=== PATIENT | male | born 1960 | race Caucasian/White ===

== ENCOUNTER 2016-08-22 16:59 | Emergency (ER) | payer OTHER ==
[2016-08-22 17:07] VITALS: BP 140/95; PULSE 74; RESP 16; TEMP 98.1; O2SAT 98
--- NOTE | 2016-08-22 17:36 | UCPHY ---
H & P Patient Type: Established Chief Complaint Nursing Narrative: l eye redness and drainage, started this am Time Seen by Provider: 08/22/16 17:26 HPI/ROS: CHIEF COMPLAINT: left eye redness, drainage HISTORY OF PRESENT ILLNESS: 56-year-old male presents complaining left eye redness with thick drainage that started this morning. Patient reports a mild nasal congestion. He reports his eye feels irritated mild itching. Patient denies foreign body sensation, no fevers, no blurred visions, no visual floaters or flashing lights. Patient does not wear contact lenses. REVIEW OF SYSTEMS: A comprehensive 10 point review of systems is otherwise negative aside from elements mentioned in the history of present illness. Source: Patient Exam Limitations: No limitations - Personal History Tetanus Vaccine Date: WITHIN 10 YRS - Medical/Surgical History Hx Asthma: No Hx Chronic Respiratory Disease: No Hx Diabetes: No Hx Cardiac Disease: No Hx Renal Disease: No Hx Cirrhosis: No Hx Alcoholism: No Hx HIV/AIDS: No Hx Splenectomy or Spleen Trauma: No Other PMH: denies - Family History Significant Family History: No pertinent family hx - Social History Smoking Status: Former smoker - Physical Exam Exam: Visual Acuity: Noted from Nurse's notes. Pupils: PERRLA, EOMI, no nystagmus, no trauma, no injection. Lids: No edema or swelling Skin: No proptosis, no periorbital erythema or swelling, no vesicles Conjunctivae: left eye injected, not icteric, purulent left eye discharge Cornea: Exam with slit lamp of left eye and fluoroscein shows no corneal abrasion Anterior chamber: Normal, no hyphema or hypopyon Constitutional: Initial Vital Signs Temperature (C) 36.7 C 08/22/16 17:05 Heart Rate 74 08/22/16 17:05 Respiratory Rate 16 08/22/16 17:05 Blood Pressure 140/95 H 08/22/16 17:05 O2 Sat (%) 98 08/22/16 17:05 O2 Delivery Mode Room Air Allergies/Adverse Reactions: No Known Allergies Allergy (Verified 05/20/16 07:27) Home Medications: Medication Instructions Recorded ASPIRIN 09/07/13 Sildenafil Citrate [Viagra] 100 mg PO HS #15 tablet 01/15/16 Erythromycin 0.5% 1 bhupinder OP QID #10 gm 08/22/16 Medical Decision Making ED Course/Re-evaluation: 56-year-old male presents with right eye and drainage that started this morning. He has no evidence of corneal abrasion, iritis, detached retina. Patient is given a prescription for erythromycin ointment, he is given the dry cleaning supervisor to follow up with and given return precautions. Departure - Departure Disposition: Home, Routine, Self-Care Clinical Impression: Conjunctivitis, left eye Qualifiers: Conjunctivitis type: acute Acute conjunctivitis type: bacterial Qualifier Code : (H10.32) Unspecified acute conjunctivitis, left eye Condition: Good Instructions: Conjunctivitis (ED) Additional Instructions: Cool compresses to your left eye. Use the antibiotic ointment in your eye every 4 hours for 7 days. Follow up with the dry cleaning supervisor in 2 days for symptoms that are not improving. Sooner for worsening symptoms. Referrals: Víctor Huffman MD [Medical Doctor] - As per Instructions (Optical Engineering Manager on-call ) Prescriptions: Erythromycin 0.5% 1 bhupinder OP QID #10 gm - PQRS PQRS Measurement: na
== END 2016-08-22 18:21 | disposition home or self-care (01) ==
LOC: CED 16:59
DX: H10.32 Unspecified acute conjunctivitis, left eye (principal)
CPT/HCPCS: 99214-PO; G0463-PO

== ENCOUNTER 2016-11-23 19:24 | Emergency (ER) | payer OTHER ==
--- NOTE | 2016-11-23 19:44 | EDPHY ---
H & P Stated Complaint: R sided inguinal pain HPI/ROS: HPI CHIEF COMPLAINT: Testicular pain HISTORY OF PRESENT ILLNESS: This patient very pleasant 56-year-old male no significant medical history except for epididymitis, he presents emergency room requesting antibiotic and pain medicine as he tells me that he thinks he has epididymitis again. He states approximately 12 hours ago developed right testicular pain along the cord of his testicle. He tells me feels exactly like his previous 2 episodes of epididymitis. He denies dysuria back pain or abdominal pain. Denies history of hernia. Denies fever. Past Medical History: Epididymitis Past Surgical History: Right shoulder surgery Social History: Occasional marijuana, denies drugs or alcohol Family History: Noncontributory ROS REVIEW OF SYSTEMS: A comprehensive 10 point review of systems is otherwise negative aside from elements mentioned in the history of present illness. Exam Constitutional triage nursing summary reviewed, vital signs reviewed, awake/ alert. Eyes normal conjunctivae and sclera, EOMI, PERRLA. HENT normal inspection, atraumatic, moist mucus membranes, no epistaxis, neck supple/ no meningismus, no raccoon eyes. Respiratory clear to auscultation bilaterally, normal breath sounds, no respiratory distress, no wheezing. Cardiovascular rate normal, regular rhythm, no murmur, no edema, distal pulses normal. Gastrointestinal soft, non-tender, no rebound, no guarding, normal bowel sounds, no distension, no pulsatile mass. Genitourinary exam: This is a circumcised male, normal scrotum, normal cremasteric reflex tender palpation down the right epididymal cord tender palpation lifting up the right testicle, no inguinal hernia palpated. Left cord and testicle normal. No cellulitis or abscess. No drainage. No lesions. Musculoskeletal no midline vertebral tenderness, full range of motion, no calf swelling, no tenderness of extremities, no meningismus, good pulses, neurovascularly intact. Skin pink, warm, & dry, no rash, skin atraumatic. Neurologic awake, alert and oriented x 3, AAOx3, moves all 4 extremities equally, motor intact, sensory intact, CN II-XII intact, normal cerebellar, normal vision, normal speech. Psychiatric normal mood/affect. Heme/Lymph/Immune no lymphadenopathy. Differential Diagnosis: Includes but is not limited to in a particular order epididymitis, testicular torsion, abscess, mass, bronchitis orchitis Medical Decision Making: I recommend this patient will perform an ultrasound of his testicles and cord to rule out testicular torsion versus abscess versus hernia however patient is refusing ultrasound also is refusing any blood draw or urinalysis. He tells me just wanted antibiotic and pain medicine. I explained that I cannot 100% rule that he has epididymitis and not testicular torsion and I highly recommend that he gets an ultrasound. He has declined this. Patient understands by declining ultrasound urinalysis and blood work that I cannot make 100% accurate diagnosis and he could have testicular torsion. Since he is refusing all evaluation here in emergency room I will be glad this start him on ciprofloxacin and [place] for pain control. Referred to Urology. However he understands if his pain gets worse or he changes mind about evaluation to return emergency room. By refusing testing there can be admits diagnosis. He understands that if he has testicular torsion this could result in severe morbidity, or even mortality and loss of testicle. Loss of quality of life. He understands Of note also this patient will sound out against medical advice as he is not allow for appropriate evaluation. Source: Patient - Personal History Current Tetanus/Diphtheria Vaccine: Yes Tetanus Vaccine Date: WITHIN 10 YRS - Medical/Surgical History Hx Asthma: No Hx Chronic Respiratory Disease: No Hx Diabetes: No Hx Cardiac Disease: No Hx Renal Disease: No Hx Cirrhosis: No Hx Alcoholism: No Hx HIV/AIDS: No Hx Splenectomy or Spleen Trauma: No Other PMH: denies - Social History Smoking Status: Former smoker Constitutional: Initial Vital Signs Temperature (C) 37.3 C 11/23/16 19:41 Heart Rate 102 H 11/23/16 19:41 Respiratory Rate 18 11/23/16 19:41 Blood Pressure 107/68 11/23/16 19:41 O2 Sat (%) 97 11/23/16 19:41 O2 Delivery Mode Room Air Allergies/Adverse Reactions: No Known Allergies Allergy (Verified 11/23/16 19:40) Home Medications: Medication Instructions Recorded Ciprofloxacin [Cipro] 500 mg PO BID #14 tab 11/23/16 Hydrocodone/APAP 5/325 [[place] 1 - 2 tab PO Q4H PRN #10 tab 11/23/16 5/325] Hydrocodone/Acetaminophen [[place] 1 - 2 tab PO Q4H PRN 11/23/16 5/325 (*)] Ibuprofen [Motrin (*)] 800 mg PO Q6-8PRN #7 tab 11/23/16 Departure - Departure Disposition: Against Medical Advice Clinical Impression: Testicular pain, right Condition: Fair Instructions: Testicle Pain (ED), Scrotal Pain (ED) Additional Instructions: 1. If your change your mind about the blood work urinalysis and ultrasound return emergency room. 2. Please immediately return emergency room if you have worsening pain swelling or questions or concerns. 3. I do recommend he follow up with Urology. Referrals: NONE *PRIMARY CARE P,. [Primary Care Provider] - As per Instructions Roger Garvey MD [Medical Doctor] - As per Instructions Prescriptions: Ciprofloxacin [Cipro] 500 mg PO BID #14 tab Hydrocodone/APAP 5/325 [[place] 5/325] 1 - 2 tab PO Q4H PRN #10 tab PRN Reason: Pain, Moderate Ibuprofen [Motrin (*)] 800 mg PO Q6-8PRN #7 tab
[2016-11-23] MEDS ORDERED: CIPROFLOXACIN 500 MG TAB PO ONE (20:06)
[2016-11-23 20:11] VITALS: BP 110/72; PULSE 90; RESP 16; TEMP 99; O2SAT 98
== END 2016-11-23 20:10 | disposition left against medical advice (07) ==
LOC: CED 19:24
DX: N50.811 Right testicular pain (principal); Z87.438 Personal history of other diseases of male genital organs; Z87.891 Personal history of nicotine dependence